=== PATIENT | male | born 2000 | race Caucasian/White ===

== ENCOUNTER 2022-03-18 15:01 | Emergency (ER) | payer OTHER ==
[~2022-03-18] VITALS: Ht 177.8 cm; Wt 84.7 kg
[2022-03-18 15:15] VITALS: BP 127/97
--- NOTE | 2022-03-18 15:36 | ED Integumentary General ---
General Chief Complaint: Laceration Stated Complaint: R LEG LAC Nursing Triage Note: Pt ambulatory into ER with complaint of right thigh lac. Pt states that he was standing on tailgait of truck and slipped and caught inner thigh on edge of tailgate. Bleeding controlled. Fatty tissue present. Source: patient Exam Limitations: no limitations History of Present Illness Date Seen by Provider: Mar 18, 2022 Time Seen by Provider: 15:33 Initial Comments Patient is a 22-year-old male who presents to the emergency room with a wound to the medial right thigh. Patient states that he slipped and caught his leg on the corner of the tailgate of his truck. Patient denies any other complaints of injury. Does not recall his last tetanus shot. Injury happened approximately 30 minutes prior to arrival. He is not a diabetic. No other complaints of recent illness. All other review of systems reviewed and negative except as stated. Timing/Duration: just prior to arrival Severity: mild Associated Symptoms: denies symptoms Allergies and Home Medications Allergies Coded Allergies: No Known Drug Allergies (Unverified , 03/18/22) Patient Home Medication List Home Medication List Reviewed: Yes Review of Systems Review of Systems Constitutional: see HPI Respiratory: no symptoms reported Gastrointestinal: no symptoms reported Musculoskeletal: muscle pain Skin: other (Laceration) All Other Systems Reviewed Negative Unless Noted: Yes Past Yotwuhv-Ynkrjx-Ybaxfb Hx Patient Social History Tobacco Use?: No Use of E-Cig and/or Vaping dev: No Substance use?: No Alcohol Use?: No Pt feels they are or have been: No Immunizations Up To Date Influenza Vaccine Up-to-Date: No; Not Current Physical Exam Vital Signs Vital Signs - First Documented 03/18/22 15:15 Temp 36.3 Pulse 118 Resp 16 B/P (MAP) 127/97 (107) Pulse Ox 100 O2 Delivery Room Air Capillary Refill : Less Than 3 Seconds General Appearance: WD/WN, no apparent distress HEENT: PERRL/EOMI Cardiovascular: regular rate, rhythm Respiratory: no respiratory distress, no accessory muscle use Extremities: normal range of motion Neurologic/Psychiatric: alert, normal mood/affect, oriented x 3 Skin: normal color, warm/dry, other (7 cm angulated laceration to the right medial thigh, subcutaneous fat exposed. No muscle belly is obvious. Tender to palpation. No active bleeding.) Skin Problem Location: lower extremities (Right medial thigh) Procedures/Interventions Wound Location: Lower Extremities Other Wound Location Right medial thigh Wound Length (cm): 7 Wound's Depth, Shape: superficial, irregular (Angulated), sub Q Wound Explored: clean Irrigated w/ Saline (ccs): 1000 Betadine Prep?: No Anesthesia: 1% Lidocaine Volume Anesthetic (ccs): 12 Suture: Prolene Suture Size: 4-0 Number of Sutures: 7 Layer Closure?: 1 Progress Wound was scrubbed with Betasept and irrigated copiously with 1 L of saline. Anesthetized with a total of 12 cc of 1% lidocaine. Wound was closed with 2 horizontal mattress sutures and 9 superficial interrupted. Wound closed very nicely. Wound is dressed with triple antibiotic ointment, Telfa and gauze Progress/Results/Core Measures Results/Orders My Orders Orders - CORINE LOBO MD Dipht,Pertuss(Acell),Tet Adult (Boostrix (03/18/22 15:45) Lidocaine 1% Inj 30 Ml (Xylocaine 1% Inj (03/18/22 15:45) Lidocaine 1% Inj 20 Ml (Xylocaine 1% Inj (03/18/22 15:42) Medications Given in ED Current Medications Medications Dose Ordered Sig/Sophie Route Start Time Stop Time Status Last Admin Dose Admin Diphtheria/ Tetanus/Acell Pertussis 0.5 ml ONCE ONCE IM 03/18/22 15:45 03/18/22 15:46 DC 03/18/22 16:23 0.5 ML Lidocaine HCl 20 ml STK-MED ONCE .ROUTE 03/18/22 15:42 03/18/22 15:45 DC 03/18/22 16:04 20 ML Vital Signs/I&O 03/18/22 15:15 Temp 36.3 Pulse 118 Resp 16 B/P (MAP) 127/97 (107) Pulse Ox 100 O2 Delivery Room Air Blood Pressure Mean: 107 Progress Progress Note : Time: 17:20 Progress Note After wound was closed I discussed wound care with the patient. Recommended washing twice a day, we will go ahead and put him on antibiotics for the next week. Keflex 500 mg 3 times a day. Wound precautions advised. Return in 2 weeks for suture removal. Departure Impression Primary Impression: Laceration of right thigh Qualified Codes: S71.111A - Laceration without foreign body, right thigh, initial encounter Disposition: HOME, SELF-CARE Condition: Stable Departure-Patient Inst. Decision time for Depature: 17:21 Referrals: NO,LOCAL PHYSICIAN (PCP/Family) Primary Care Physician Patient Instructions: Laceration Repair With Stitches ED Add. Discharge Instructions: Keep the right wound clean dry and covered for the next several days. Wash it twice daily with gentle soap and water. Keflex antibiotics, 3 times a day for 7 days. If the wound becomes hot, red, swollen or drains puslike material please come back to the emergency room for reevaluation You can take [id number] ibuprofen, 3 tablets which is 600 mg every 6 hours as needed for pain. The sutures will need to come out in 12 to 14 days. Please come back to the emergency department as it is part of this visit to have them removed. Scripts Cephalexin (Cephalexin) 500 Mg Tablet 500 MG PO TID for 7 Days, #21 TAB Prov: CORINE LOBO MD 03/18/22 CORINE LOBO MD Mar 18, 2022 15:36
[2022-03-18] MEDS ORDERED: LIDOCAINE 1% INJ 20 ML VIAL ONE (15:42)
[2022-03-18] MEDS ORDERED: TETANUS,DIPTH,PERTUSS P/F (BOOSTRIX) 0.5 ML VIAL IM ONE (15:45)
[2022-03-18] MEDS ORDERED: LIDOCAINE 1% INJ 30 ML (XYLOCAINE) VIAL INJ ONE (15:45)
[2022-03-18] MEDS ORDERED: CEPH500T PO (17:22)
== END 2022-03-18 17:40 | disposition home or self-care (01) ==
LOC: ER 15:05
DX: S71.111A Laceration without foreign body, right thigh, initial encounter (principal); Z23 Encounter for immunization; W01.118A Fall on same level from slipping, tripping and stumbling with subsequent striking against other sharp object, initial encounter
CPT/HCPCS: 90715; 99284

== ENCOUNTER 2022-04-01 18:14 | Emergency (ER) | payer OTHER ==
[~2022-04-01] VITALS: Ht 177.8 cm; Wt 81.6 kg
[~2022-04-01 18:14] MED LIST: CEPH500T PO
[2022-04-01 18:35] VITALS: BP 132/70
== END 2022-04-01 18:42 | disposition home or self-care (01) ==
LOC: EDUNIT# 18:14 → ER 18:17
DX: Z48.02 Encounter for removal of sutures (principal)